=== PATIENT | female | born 1935 | race Caucasian/White ===

== ENCOUNTER 2018-10-28 17:33 | Inpatient (IN) ==
--- NOTE | 2018-10-28 17:53 | PROVIDER DOCUMENTATION ---
HPI-General Adult - General Chief Complaint: Return/Recheck Stated Complaint: RECHECK Time Seen by Provider: 10/28/18 17:52 Source: patient Allergies/Adverse Reactions: Patient Allergies Allergy/AdvReac Type Severity Reaction Status Date / Time No Known Allergies Allergy Verified 10/28/18 17:59 Home Medications: Home Medication List Medication Instructions Recorded Confirmed Last Taken Type Metformin [Glucophage] 500 mg PO DAILY 02/03/12 10/28/18 07/12/18 History Aspirin 81 mg PO DAILY 11/21/12 10/28/18 05/28/17 History Carvedilol [Coreg] 6.25 mg PO DAILY 08/03/13 10/28/18 07/12/18 History Losartan/Hctz [Hyzaar 50/12.5 mg] 1 each PO DAILY 08/03/13 10/28/18 07/12/18 History Escitalopram Oxalate [Lexapro] 5 mg PO DAILY 05/09/15 10/28/18 07/12/18 History Clindamycin [Cleocin] 300 mg PO Q6HR 7 Days #56 cap 10/27/18 10/28/18 Unknown Rx - History of Present Illness -Gen Adult Nature of Presenting Problems: Pt. is 82 yof that presents with c/o redness and swelling to the left foot. Pt. reports she was seen yesterday for the same but it is getting worse. Pt. thinks she was bitten by an insect. She denies any other complaints. Location of Pain/Injury: reports: feet (Left). denies: none, head, face, mouth, neck, chest, upper extremity, hand(s), abdomen, back, pelvis, genitalia, lower extremity, upper body, lower body, generalized, other Pain Radiation: reports: no radiation. denies: arm(s), back, buttocks, chest, epigastric, feet, groin, jaw, flank (L), legs (lower), LLQ, LUQ, neck, periumbilical, flank (R), RLQ, RUQ, shoulder(s), scapula, scrotal, sternal notch, suprapubic, legs (upper), urethral, vaginal, other Quality of Pain: reports: aching. denies: burning, cramping, pressure, stabbing, throbbing, tightness Severity: reports: mild. denies: moderate, severe Onset/Duration: reports: gradual, 2 days ago Timing: reports: still present. denies: improving, intermittent, constant, getting worse Context/Activities at Onset: reports: none. denies: light activity, moderate activity, vigorous activity, recent emotional stress, recent physical stress, recent trauma history, possible bad food, cold exposure, eating, out of country travel, rest, sleep, sexual activity, other Modifying Factors: improves with: nothing Associated Symptoms: reports: other (Left foot redness and swelling.). denies: denies symptoms, anxiety, arm pain, back/neck pain, chest pain, constipation, cough, diaphoresis, diarrhea, dizziness, EENT symptoms, fatigue, fever/chills, genitourinary problems, headaches, heartburn, joint pain, loss of appetite, malaise, muscle aches, sinus congestion/drainage, nausea, rash, seizure, shortness of breath, sensory/motor loss, pain with inspiration, swelling/mass in abdomen, syncope, vomiting, weakness, trouble walking Similar Symptoms Previously?: Yes Recently seen or treated by another doctor?: Yes Review of Systems - Adult - REVIEW OF SYSTEMS - ADULT Constitutional: reports: no symptoms reported Eyes: reports: no symptoms reported Ears, Nose, Mouth & Throat: reports: no symptoms reported Cardiovascular: reports: no symptoms reported Respiratory: reports: no symptoms reported Gastrointestinal: reports: no symptoms reported Genitourinary: reports: no symptoms reported Musculoskeletal: reports: no symptoms reported Integumentary: reports: see HPI, skin thickening. denies: hair loss, mole changes, nail changes, skin sores/ulcer Neurological: reports: no symptoms reported Psychiatric: reports: no symptoms reported Past History - Adult - PAST MEDICAL HISTORY-ADULT Review of Records: reports: Old Records Reviewed, Nursing Assessment Review, Medications Reviewed, Social history reviewed & non-contributory. Major Childhood Illnesses: reports: denies history Cardiovascular: reports: CAD, HTN, hyperlipidemia, [place] Respiratory: reports: COPD Gastrointestinal: reports: denies history Obstetrical/Gynecological: reports: denies history Genitourinary: reports: denies history Musculoskeletal: reports: denies history Neurological: reports: denies history Psychiatric: reports: anxiety Endocrine/Immune: reports: Diabetes Other Conditions: reports: denies history - PRIOR SURGERIES/PROCEDURES Surgical/Procedure History: reports: cardiac stent, hernia repair - PRIOR HOSPITALIZATIONS Prior Hospitalizations: reports: for similar symptoms - IMMUNIZATION STATUS Childhood Immunizations: See Nurse Assessment Flu Vaccine: See Nurse Assessment - FAMILY HISTORY Family History: reviewed, not pertinent - SOCIAL HISTORY Smoking: denies Physical Exam-General - PHYSICAL EXAM-ADULT Initial Vital Signs Reviewed: Yes - CONSTITUTIONAL General Appearance: alert, no apparent distress, thin. negative: anxious, slow to respond, obtunded, combative - EYES Eyes: PERRL/EOMI, pink conjunctivae. negative: conjuctival exudate, scleral icterus, subconjunctival hemorrhage - HEAD, EARS, NOSE, MOUTH & THROAT HENMT: normocephalic/atraumatic, moist mucous membranes. negative: angioedema, frontal tenderness, maxillary tenderness - NECK Neck: non-tender, full range of motion, supple, normal inspection - RESPIRATORY Respiratory: lungs clear, normal breath sounds. negative: crackles, rales, rhonchi, stridor, wheezing - CARDIOVASCULAR Cardiovascular: normal peripheral pulses, regular rate, rhythm, no edema - GASTROINTESTINAL (ABDOMEN) Abdominal Exam: normal bowel sounds, non tender, soft - LYMPHATIC Lymphatic: no adenopathy. negative: axilla node tender, cervical node tenderness - MUSCULOSKELETAL Back Exam: normal inspection, no CVA tenderness, no vertebral tenderness Extremity: normal range of motion, non-tender, normal gait, normal inspection. negative: erythema, inflammation, swelling, tenderness Peripheral Pulses: radial (R): 2+, radial (L): 2+ - SKIN Integumentary: erythema (Left foot), swelling (Left foot), tenderness (Left foot), warm (Left foot). negative: blanching, cyanosis, diaphoresis, mottled - NEUROLOGIC Neurologic: grossly normal, no motor/sensory deficits - PSYCHIATRIC Psych/Mental Status: normal mood/affect, normal thought content, normal thought process, oriented x 3. negative: anxious, paranoid, tearful Progress - PLAN OF CARE/RESULTS Progress/Plan/Lab Results: Vital Signs - 8 hr 10/28/18 17:37 Temperature 97.7 F Pulse Rate 108 H Respiratory Rate 18 Blood Pressure 120/50 O2 Sat by Pulse Oximetry 97 Laboratory Tests 10/28/18 10/28/18 18:05 18:12 WBC 6.89 RBC 3.47 L Hgb 10.2 L Hct 31.6 L MCV 91.1 MCH 29.4 MCHC 32.3 L RDW Std Deviation 13.7 Plt Count 235 MPV 10.5 H Immature Gran % (Auto) 0.0 Neut % (Auto) 64.3 Lymph % (Auto) 23.5 [place] % (Auto) 10.9 H Eos % (Auto) 0.9 Baso % (Auto) 0.4 Immature Gran # (Auto) 0.00 Neut # (Auto) 4.43 Lymph # (Auto) 1.62 [place] # (Auto) 0.75 H Eos # (Auto) 0.06 Baso # (Auto) 0.03 Plasma Lactate 2.4 H Discussed results and plan of care with patient. Patient agrees with plan and verbalizes understanding. Result Diagrams: 10/28/18 18:05 - XRAY 1 XRAY: Left XRAY Study: Foot ([facility] [address] [address], [address], [place] [address] Department of Imaging Patient: SHERI HAYWARD Date: 10/28/18#: [id number] : 8ADM Status: PRE ERAcct#: [id number] Age/Sex: 82/FRoom/Bed: Loc: ED Ordering Physician: Fawn Bennett Family Physician: June Desai Reason for Procedure: swelling and pain Signed FOOT COMPLETE LEFT - 10/28/2018 INDICATION: swelling and pain TECHNIQUE: Three views COMPARISON: None FINDINGS: There is no fracture or dislocation. There is nonspecific soft tissue swelling at the dorsum of the foot. There are mild degenerative changes of the mid tarsal joints and small degenerative heel spurs. There is peripheral vascular disease with vascular calcification about the ankle. IMPRESSION: Nonspecific findings. Electronically signed by Tommy Barry 10/28/2018 6:42 PM 10/28/18 [id number] Interpreting Physician: Tommy Barry MD Dictated Date/Time: 10/28/18 1841 cc: Fawn Bennett; Juen Desai) XRAY Interpretation: See note - CONSULTS/PCP/HOSPITALIST Notification #1 *Consult/PCP/Hospitalist*: Dr. Em Time Discussed: 20:18 Reason/Comments: Admission Consult Disposition: Will see in ED, Admit Departure - Departure Date of Disposition Decision: 10/28/18 Time of Disposition Decision: 20:19 DIAGNOSIS: Cellulitis Qualifiers: Site of cellulitis: extremity Site of cellulitis of extremity: lower extremity Laterality: left Qualified Code(s): L03.116 - Cellulitis of left lower limb Disposition: ADMITTED INPATIENT 09 Certified Medical Emergency: Emergent Condition: Stable Referrals and Follow-Ups: June Desai CRNP [Primary Care Provider] - - Critical Care Note This patient required my direct & personal management of CC.: No Attestation - Physician/ GLEN Attestation Patient care was provided by Advanced Practice Provider:: Yes Advanced Practice Provider:: Fawn Bennett Advanced Practice Provider documentation review:: The Mid-level provider documentation, treatment plan and medical decision making was reviewed by the physician who agrees with all treatment and medical decision making by the P. The physician spent face to face time with patient:: No Advanced Practice Provider documentation review:: Supervising physician onsite and consulted in the evaluation and care of this patient. The physician did not have a face to face encounter with the patient.
[2018-10-28 18:31] LABS: BASO# 0.03 X1000 (0.0-0.2); BASO% 0.4 % (0.0-0.8); EOS# 0.06 X1000 (0.0-0.7); EOS% 0.9 % (0.0-10.0); HEMATOCRIT 31.6 % (37.0-47.0); HEMOGLOBIN 10.2 g/dL (12.0-16.0); LYMPH# 1.62 X1000 (1.2-3.4); LYMPH% 23.5 % (20.5-51.1); MCH 29.4 PG (27-31); MCHC 32.3 g/dL (33-37); MCV 91.1 FL (81-99); MONO# 0.75 X1000 (0.11-0.59); MONO% 10.9 % (1.7-9.3); MPV 10.5 FL (7.4-10.4); NEUT# 4.43 X1000 (1.4-6.5); NEUT% 64.3 % (42.2-75.2); PLT 235 X1000 (130-400); RBC 3.47 XMIL (4.2-5.4); RDW 13.7 % (11.5-14.5); WBC 6.89 X1000 (4.8-10.8)
--- NOTE | 2018-10-28 18:45 | Diag Imaging Result Doc PS360 ---
FOOT COMPLETE LEFT - 10/28/2018 INDICATION: swelling and pain TECHNIQUE: Three views COMPARISON: None FINDINGS: There is no fracture or dislocation. There is nonspecific soft tissue swelling at the dorsum of the foot. There are mild degenerative changes of the mid tarsal joints and small degenerative heel spurs. There is peripheral vascular disease with vascular calcification about the ankle. IMPRESSION: Nonspecific findings. Electronically signed by Tommy Barry 10/28/2018 6:42 PM
[2018-10-28] MEDS ORDERED: ROCEPHIN 1 GM in NS 50 ML IV ONE (20:19)
[2018-10-28] MEDS ORDERED: VANCOMYCIN 1 GM/NS 1 GM/250 ML IVPB IV ONE (20:20)
--- NOTE | 2018-10-28 20:41 | Diag Imaging Result Doc PS360 ---
CHEST-1 VIEW - 10/28/2018 INDICATION: admission COMPARISON: 05/28/2017 FINDINGS: Lungs are severely hyperexpanded compatible with advanced COPD. There is cardiomegaly and pulmonary vascular congestion. Mild ill-defined infiltrate or edema in the right lower lobe. Probable rib fracture at the upper right rib cage. IMPRESSION: Nonspecific findings. Electronically signed by Tommy Barry 10/28/2018 8:38 PM
[2018-10-28 21:00] LABS: URINE SOURCE CLEAN CATCH
[2018-10-28 21:12] LABS: BILIRUBIN URINE NEGATIVE (NEGATIVE); BLOOD URINE NEGATIVE (NEGATIVE); COLOR YELLOW; GLUCOSE URINE NEGATIVE (NEGATIVE); KETONE URINE NEGATIVE (NEGATIVE); LEUKOCYTES URINE SMALL (NEGATIVE); NITRITE URINE NEGATIVE (NEGATIVE); PH URINE 5.5; PROTEIN URINE TRACE mg/dL (NEGATIVE); SP GRAVITY URINE 1.016; TURBIDITY URINE CLEAR (CLEAR); UROBILINOGEN URINE 2 mg/dL (NORMAL)
[2018-10-28 21:19] LABS: AGAP 13; ALBUMIN 3.5 g/dL (3.5-5.0); ALKALINE PHOSPHATASE 94 U/L (32-104); BUN 25 mg/dL (8-22); CALCIUM 9.1 mg/dL (8.8-10.2); CHLORIDE 99 mmol/L (98-107); COSMO 280; CREATININE 0.8 mg/dL (0.5-0.9); ESTIMATED GFR > 60; GLUCOSE 136 mg/dL (70-104); GOT 33 U/L (10-30); GPT 15 U/L (10-36); POTASSIUM 4.1 mmol/L (3.5-5.1); SODIUM 137 mmol/L (136-145); TCO2 25 mmol/L (25-35); TOTAL BILIRUBIN 0.27 mg/dL (0.20-1.00)
[2018-10-28 21:23] LABS: UR EPITHELIAL CELLS <10 /HPF (<10); URINE BACTERIA NEGATIVE /HPF; URINE RBC <10 /HPF (<10); URINE WBC <10 /HPF (<10)
[2018-10-29] MEDS ORDERED: VANCOMYCIN IV PER PHARMACY MISC SCH
[2018-10-29] MEDS ORDERED: NS 1,000 ML IV SCH
[2018-10-29] MEDS ORDERED: ROCEPHIN 1 GM in NS 50 ML IV SCH ×2
[2018-10-29 06:08] LABS: BASO# 0.01 X1000 (0.0-0.2); BASO% 0.2 % (0.0-0.8); EOS# 0.16 X1000 (0.0-0.7); EOS% 2.9 % (0.0-10.0); HEMATOCRIT 32.2 % (37.0-47.0); HEMOGLOBIN 10.4 g/dL (12.0-16.0); IMM GRAN# 0.02 X1000 (0.0-0.04); IMM GRAN% 0.4 % (0.0-0.5); LYMPH# 0.55 X1000 (1.2-3.4); LYMPH% 9.9 % (20.5-51.1); MCH 29.1 PG (27-31); MCHC 32.3 g/dL (33-37); MCV 89.9 FL (81-99); MONO# 0.36 X1000 (0.11-0.59); MONO% 6.5 % (1.7-9.3); MPV 10.4 FL (7.4-10.4); NEUT# 4.44 X1000 (1.4-6.5); NEUT% 80.1 % (42.2-75.2); PLT 231 X1000 (130-400); RBC 3.58 XMIL (4.2-5.4); RDW 13.3 % (11.5-14.5); WBC 5.54 X1000 (4.8-10.8)
[2018-10-29 06:32] LABS: AGAP 10; BUN 17 mg/dL (8-22); CALCIUM 9.2 mg/dL (8.8-10.2); CHLORIDE 103 mmol/L (98-107); COSMO 279; CREATININE 0.6 mg/dL (0.5-0.9); ESTIMATED GFR > 60; GLUCOSE 91 mg/dL (70-104); POTASSIUM 4.6 mmol/L (3.5-5.1); SODIUM 139 mmol/L (136-145); TCO2 26 mmol/L (25-35)
[2018-10-29] MEDS: HUMULIN R SUBQ SCH ×4 (06:57→23:18)
--- NOTE | 2018-10-29 07:44 | EKG Report ---
Test Performed on : 10/28/2018 8:26:33 PM Test Reason : admit Blood Pressure : / mmHG Vent. Rate : 079 BPM Atrial Rate : 079 BPM P-R Int : 148 ms QRS Dur : 070 ms QT Int : 352 ms P-R-T Axes : 114 037 063 degrees QTc Int : 403 ms Normal sinus rhythm. Normal ECG When compared with ECG of 25-AUG-2016 20:37, premature supraventricular complexes. are no longer present Unconfirmed Result
[2018-10-29] MEDS: HYZAAR 50/12.5 MG PO SCH (08:32)
[2018-10-29] MEDS: LEXAPRO PO SCH (08:32)
[2018-10-29] MEDS: ASPIRIN PO SCH (08:32)
[2018-10-29] MEDS: COREG PO SCH (08:32)
[2018-10-29] MEDS: LOVENOX SUBQ SCH (09:02)
--- NOTE | 2018-10-29 15:46 | HISTORY AND PHYSICAL ---
PRIMARY CARE PHYSICIAN: Dr. Desai CHIEF COMPLAINT: Left ankle pain. HISTORY OF PRESENTING ILLNESS: 82 -year-old female with a history of coronary artery disease, [place], hypertension, diabetes mellitus type 2 presents to emergency department with several day history of having pain in her left ankle. She states apparently she was walking in her yard and she may have scraped against something or something may have bit her. She developed a moderate amount of pain in that left ankle region and the ankle was swollen and getting more tender. She was evaluated in the emergency department and her left ankle had a lot of edema and erythema consistent with cellulitis. Subsequently she will require admission for further management. At the time of my examination patient denied any headache, fever, chills, chest pain, shortness of breath, hemoptysis, no weight changes but complaint of left ankle pain. PAST MEDICAL HISTORY: 1. Coronary artery disease. 2. Myocardial infarction. 3. Hypertension. 4. Hyperlipidemia. 5. Diabetes mellitus type 2. PAST SURGICAL HISTORY: 1. Hernia repair. 2. Coronary stent. ALLERGIES: NO KNOWN DRUG ALLERGIES. CURRENT MEDICATIONS: 1. Aspirin 81 mg per daily. 2. Coreg 6.25 mg per daily. 3. Lexapro 5 mg per daily. 4. Hyzaar 50/12.5 mg per daily. 5. Metformin 500 mg p.o. per daily. SOCIAL HISTORY: She is a former smoker. No history of alcohol or illicit drug use. FAMILY HISTORY: Positive for coronary artery disease in father. REVIEW OF SYSTEMS: 14 point review of systems as list in the history of present illness, other systems negative. PHYSICAL EXAMINATION: GENERAL: Cooperative, friendly female. She is resting more comfortably now. VITAL SIGNS: Temperature 97.7, pulse 108, respiration 18, blood pressure 120/50. HEENT: Atraumatic, normocephalic. Extraocular movements are intact, PERRLA. NECK: No masses. CHEST: Clear to auscultation. CARDIOVASCULAR: Regular rate and rhythm. ABDOMEN: Soft, positive bowel sounds. EXTREMITIES: Left ankle moderate edema and erythema. NEURO: She is alert, awake, oriented x 3. : No bladder distention. SKIN: Warm. LABORATORY AND STUDIES: WBC 6.89, hemoglobin 10.2, hematocrit 31.6, platelets 236. Sodium 137, potassium 4.1, chloride 99, CO2 25, BUN 25, creatinine 0.8, glucose 136. ASSESSMENT: 82 -year-old female with a history of coronary artery disease, hypertension, diabetes mellitus type 2 presented to the emergency department after she possibly scraped her left ankle or inset bit her. She developed moderate erythema in her left ankle. She was brought to the emergency department where her ankle was evaluated and clinically seemed consistent with cellulitis. Subsequently she will require admission for management. IMPRESSION: 1. Left ankle cellulitis. 2. Diabetes mellitus type 2. 3. Hypertension. PLAN: 1. We will admit patient to medical floor. 2. We will start patient on IV antibiotics. 3. Monitor blood glucose and put patient on sliding scale insulin regimen. 4. We will monitor blood pressure and resume antihypertensive agent. 5. We will continue with deep venous thrombosis prophylaxis with Lovenox. 6. We will continue to follow and make further recommendations based on patient's clinical course. cc: Donny Em MD
[2018-10-30 06:27] LABS: AGAP 3; CHLORIDE 101 mmol/L (98-107); GLUCOSE 87 mg/dL (70-104); POTASSIUM 4.2 mmol/L (3.5-5.1); SODIUM 134 mmol/L (136-145); TCO2 30 mmol/L (25-35)
[2018-10-30 06:28] LABS: BUN 16 mg/dL (8-22); CALCIUM 9.1 mg/dL (8.8-10.2); COSMO 269; CREATININE 0.6 mg/dL (0.5-0.9); ESTIMATED GFR > 60
[2018-10-30] MEDS: HUMULIN R SUBQ SCH ×2 (06:30→11:34)
[2018-10-30 07:43] VITALS: BP 156/77
[2018-10-30] MEDS: HYZAAR 50/12.5 MG PO SCH (09:11)
[2018-10-30] MEDS: COREG PO SCH (09:11)
[2018-10-30] MEDS: LOVENOX SUBQ SCH (09:11)
[2018-10-30] MEDS: LEXAPRO PO SCH (09:11)
[2018-10-30] MEDS: ASPIRIN PO SCH (09:11)
[2018-10-30] MEDS ORDERED: VANCOMYCIN 650 MG in NS 150 ML IV SCH (20:00)
[2018-10-30] MEDS ORDERED: VANCOMYCIN 1 GM/NS 1 GM/250 ML IVPB IV SCH (22:00)
--- NOTE | 2018-10-31 10:39 | DISCHARGE SUMMARY ---
ADMISSION DATE: 10/28/2018 DISCHARGE DATE: 10/30/2018 DISCHARGE DISPOSITION: Home with family. DISCHARGE CONDITION: Hemodynamically stable, alert, oriented. Her left foot erythema and edema and warmth have significantly decreased. Blood cultures were negative. DISCHARGE DIAGNOSES: 1. Left foot cellulitis. 2. Bilateral feet onychomycosis. 3. Essential hypertension. OTHER DIAGNOSES: 1. History of coronary artery disease and myocardial infarction status post stent in 2008. 2. Rsa-hvujhen-yrafhifyd diabetes mellitus. 3. Essential hypertension. 4. Anxiety. 5. Hyperlipidemia. DISCHARGE MEDICATIONS: Aspirin 81 mg daily. Carvedilol 6.25 mg daily. Metformin 500 mg daily. Losartan/hydrochlorothiazide 50 mg/12.5 mg 1 tablet daily. Escitalopram 5 mg daily. Cefuroxime 250 mg every 6 hours, #20 tablets have been prescribed. DISCHARGE PHYSICAL EXAMINATION: Vitals at the time of discharge: Temperature 98.1 degrees, pulse 77, respiratory rate 20, blood pressure 150/77, saturating 97% on room air. General: Not in any acute distress. Appears cachectic. No pallor, cyanosis, clubbing, or icterus. Oral cavity is moist. Air entry bilaterally equal. No wheeze, rhonchi, crackles. S1, S2 normal. No murmur, rub, gallop. Abdomen is soft, nontender. No abnormality on the right lower extremity as such. Left foot has mild edema affecting ankle. There is no visible erythema. She does have bilateral onychomycosis. She is alert. She is oriented to person and place, but does appear to have mild cognitive impairment. SIGNIFICANT LABORATORIES DURING HOSPITALIZATION AND DISCHARGE: WBC 5000, hemoglobin 10.4, platelet 231,000. Sodium 134, potassium 4.2, BUN 16, creatinine 0.6, blood glucose 105. SIGNIFICANT MICROBIOLOGICAL DATA DURING HOSPITAL ADMISSION: Blood culture did not have any growth. Urine culture did not have any growth significant. SIGNIFICANT IMAGING DURING HOSPITAL ADMISSION: Foot x-ray had nonspecific soft tissue swelling in the dorsum of the foot with mild degenerative changes in the midtarsal joints and small degenerative heel spurs and peripheral vascular disease with vascular calcification about ankle. Chest x-ray had severely hyperexpanded lungs compatible with advanced COPD, cardiomegaly, pulmonary vascular congestion. HOSPITAL COURSE SUMMARY: Ms. Romero is an 82--year-old female with history of coronary artery disease and noninsulin dependent diabetes mellitus type 2, who came in with several-day history of having left ankle pain. Apparently, she was walking in the ER, and then she may have scraped again something or something may have bitten her. After that, she developed a moderate amount of pain in the left ankle region and the ankle became swollen and was getting more tender, so she was brought to the emergency room by the family. She was found to have left foot cellulitis and so admitted for IV antibiotics. She was treated initially with intravenous fluids, intravenous antibiotics for about 48 hours, following which her swelling had decreased and her erythema had disappeared. Her blood cultures had no growth to date, and x-ray of the foot did not detect any osteomyelitis. At the time of discharge, she was hemodynamically stable, and she was discharged on oral cefuroxime. She was also found to have bilateral onychomycosis, and she was advised to see her regular doctor and discuss about the treatment options. Plan of care was discussed with the patient and her daughter at bedside. All of their questions have been answered. COORDINATION TIME: Less than 30 minutes were spent in discharging this patient. cc: Dariusz Dillon MD
--- NOTE | 2018-11-01 08:43 | PROGRESS NOTE ---
DATE: 10/29/2018 INTERVAL HISTORY: Ms. Garcia was admitted overnight for left foot cellulitis. Was started on intravenous antibiotics and blood cultures were sent. Her lactic acidosis overnight have resolved. Though the urine culture is in the lab, the patient is asymptomatic. She quit smoking about 20 years ago. SUBJECTIVE: She is feeling fine and wants to go home. I discussed about clinical exam finding, need for intravenous antibiotics and awaiting fine blood culture results. Currently vitals temperature 98.1, pulse 79, respiratory rate of 16, blood pressure 140/58, saturation 98% on room air. PHYSICAL EXAMINATION: General: Appears cachectic, not in any acute distress. Oral cavity is dry. Air entry: Breath sounds are difficult to appreciate but no appreciable wheeze, rhonchi or crackles. S1, S2 normal. No murmur or gallop. Abdomen: Scaphoid, nontender. No lower extremity edema on the right side. Left foot examination reveals erythema, warmth and tenderness of left foot. No popliteal or left inguinal lymphadenopathy. Dorsalis pedis and posterior tibial pulses are intact. She does have edema affecting left foot. She also has onychomycosis affecting bilateral feet nails. LABS: Normocytic anemia. Normal platelet count. Normal electrolytes. Improvement in BUN. Resolution of lactic acidosis. Blood culture is in laboratory. Urine culture no growth to date. IMAGING: Foot x-ray did not have any acute abnormalities. ASSESSMENT AND PLAN: 1. Left foot cellulitis with lactic acidosis. Continue intravenous vancomycin and intravenous ceftriaxone. Follow-up final blood culture results. Based on that, change antibiotic to Clindamycin. 2. Continue heparin for deep venous thrombosis prophylaxis. 3. Non insulin dependent diabetes mellitus, type 2. Continue sliding scale insulin. 4. Essential hypertension. Continue home medication of carvedilol, losartan HCTZ and aspirin. 5. Others. Continue home escitalopram for anxiety. DISPOSITION: I will await final blood culture results. Based on that, I am anticipating discharge in the next 24 to 48 hours. Plan of care discussed with patient and her family at bedside. All of their questions have been answered. cc: Dariusz Dillon MD MTDD
== END 2018-10-30 12:30 | disposition home or self-care (01) | DRG 603 ==
LOC: ED 17:33 → 4N 22:43 → SUATTDRO 22:43
PROVIDERS: ATTEND Internal Medicine
CPT/HCPCS: 71010; 71045; 73630; 80048; 80053; 81001; 82948; 83605; 85025; 87040; 87088; 93005; 96365; 96367; 96372; 99282; 99285; A9270; J0696; J1650; J3370; J7030; S0077; XXXXX

== ENCOUNTER 2018-12-04 15:26 | Inpatient (IN) ==
[2018-12-04] MEDS ORDERED: MORPHINE IV ONE (15:36)
[2018-12-04] MEDS ORDERED: ZOFRAN IV ONE (15:37)
[2018-12-04 15:58] LABS: HEMATOCRIT 33.2 % (37.0-47.0); MCH 29.5 PG (27-31); RBC 3.73 XMIL (4.2-5.4); WBC 5.31 X1000 (4.8-10.8)
[2018-12-04 15:59] LABS: BASO# 0.03 X1000 (0.0-0.2); BASO% 0.6 % (0.0-0.8); EOS# 0.04 X1000 (0.0-0.7); EOS% 0.8 % (0.0-10.0); LYMPH# 1.97 X1000 (1.2-3.4); LYMPH% 37.1 % (20.5-51.1); MCHC 33.1 g/dL (33-37); MONO# 0.56 X1000 (0.11-0.59); MONO% 10.5 % (1.7-9.3); MPV 10.3 FL (7.4-10.4); NEUT# 2.71 X1000 (1.4-6.5); PLT 288 X1000 (130-400); RDW 12.7 % (11.5-14.5)
[2018-12-04 16:16] LABS: AGAP 11; ALB/GLOB RATIO 1.2; ALBUMIN 3.6 g/dL (3.5-5.0); ALKALINE PHOSPHATASE 72 U/L (32-104); BUN 22 mg/dL (8-22); CALCIUM 9.5 mg/dL (8.8-10.2); CHLORIDE 95 mmol/L (98-107); COSMO 276; CREATININE 0.8 mg/dL (0.5-0.9); ESTIMATED GFR > 60; GLUCOSE 173 mg/dL (70-104); GOT 20 U/L (10-30); GPT 9 U/L (10-36); POTASSIUM 4.4 mmol/L (3.5-5.1); SODIUM 134 mmol/L (136-145); TCO2 28 mmol/L (25-35); TOTAL BILIRUBIN 0.28 mg/dL (0.20-1.00); TOTAL PROTEIN 6.5 g/dL (6.3-8.3)
--- NOTE | 2018-12-04 16:42 | Diag Imaging Result Doc PS360 ---
KNEE 1-2 VIEWS-RIGHT - 12/04/2018 INDICATION: knee pain TECHNIQUE: Two views COMPARISON: None FINDINGS: Bones are intact and normally aligned. There is mild osteoarthritis mainly of the medial joint compartment. No joint effusion. There is moderately advanced peripheral vascular disease of the femoral and popliteal arteries. IMPRESSION: Chronic changes. Electronically signed by Tommy Barry 12/04/2018 4:40 PM
--- NOTE | 2018-12-04 16:44 | Diag Imaging Result Doc PS360 ---
CHEST-PORTABLE - 12/04/2018 INDICATION: pre op test COMPARISON: 10/28/2018 FINDINGS: Lungs are hyperexpanded compatible with COPD. Stable biapical pleural scarring. No infiltrates or edema. Heart size is borderline enlarged. IMPRESSION: COPD with pulmonary scarring. Borderline cardiomegaly. Electronically signed by Tommy Barry 12/04/2018 4:42 PM
--- NOTE | 2018-12-04 16:44 | Diag Imaging Result Doc PS360 ---
XRAY HIP UNILATERAL RT - 12/04/2018 INDICATION: femur fracture TECHNIQUE: Two views COMPARISON: None FINDINGS: There is comminuted, badly displaced intertrochanteric right proximal femur fracture. No dislocation. There is moderate hip osteoarthritis. IMPRESSION: Severe intertrochanteric right hip fracture. Electronically signed by Tommy Barry 12/04/2018 4:41 PM
--- NOTE | 2018-12-04 17:53 | PROVIDER DOCUMENTATION ---
This chart was entered by Argelia Gomez Scribe, acting as scribe for Siobhan Smith MD. HPI-Musculoskeletal Pain/Inj - GENERAL Chief Complaint: Hip Injury Stated Complaint: FALL Time Seen by Provider: 12/04/18 15:33 Source: patient - HX OF PRESENT ILLNESS-MUSKULOSKELTAL Nature of Presenting Problem: Patient is a 83 year old female who presents to the ED via EMS with right hip and right thigh pain. EMS states patient tripped and fell landing on right hip. Patient denies head injury. Quality of Pain: reports: aching Severity in ED: mild Onset/Duration: just prior to arrival Timing: still present Any recent injury?: Yes (fall) Locality of Occurance: Home Similar Symptoms Previously?: No Recently seen or treated by another doctor?: No - FALL INJURY Location of Pain/Injury: reports: lower extremity (right hip and right thigh) Pain Radiation: reports: no radiation Reason for Fall: reports: tripped Symptoms prior to fall:: reports: none Loss of Consciousness: no loss of consciousness Injury Associated Symptoms: reports: denies symptoms - HIP/PELVIS PAIN/INJURY Hip Pain Location: reports: hip (R) Pain Radiation: reports: no radiation Context / Method of Injury: reports: fall Associated Symptoms: reports: denies symptoms - LOWER EXTREMITY PAIN/INJURY Lower Extremities Pain: hip: right, thigh: right Context / Method of Injury: reports: fell Associated Symptoms: reports: denies symptoms Review of Systems - Adult - REVIEW OF SYSTEMS - ADULT Constitutional: reports: no symptoms reported. denies: chills, fever, fatique Eyes: reports: no symptoms reported Ears, Nose, Mouth & Throat: reports: no symptoms reported Cardiovascular: reports: no symptoms reported Respiratory: reports: no symptoms reported Gastrointestinal: reports: no symptoms reported Genitourinary: reports: no symptoms reported Musculoskeletal: reports: see HPI, other (right hip and right thigh pain). denies: back pain, neck pain Integumentary: reports: no symptoms reported Neurological: reports: no symptoms reported. denies: dizziness/vertigo, headache/migraines, syncope Psychiatric: reports: no symptoms reported Endocrine: reports: no symptoms reported Hematologic/Lymphatic: reports: no symptoms reported Allergic/Immunologic: reports: no symptoms reported All Other Systems: Reviewed and Negative Past History - Adult - PAST MEDICAL HISTORY-ADULT Review of Records: reports: Old Records Reviewed, Nursing Assessment Review, Medications Reviewed, Social history reviewed & non-contributory. Major Childhood Illnesses: reports: denies history Cardiovascular: reports: CAD, HTN, hyperlipidemia, MD Respiratory: reports: COPD Gastrointestinal: reports: denies history Obstetrical/Gynecological: reports: denies history Genitourinary: reports: denies history Musculoskeletal: reports: denies history Neurological: reports: denies history Psychiatric: reports: anxiety Endocrine/Immune: reports: Diabetes Other Conditions: reports: denies history - PRIOR SURGERIES/PROCEDURES Surgical/Procedure History: reports: cardiac stent, hernia repair - PRIOR HOSPITALIZATIONS Prior Hospitalizations: reports: for similar symptoms - IMMUNIZATION STATUS Childhood Immunizations: See Nurse Assessment Flu Vaccine: See Nurse Assessment - FAMILY HISTORY Family History: reviewed, not pertinent - SOCIAL HISTORY Smoking: cigarettes (former) Substance Use: denies Living Situation: family Physical Exam-Injury Related - Physical Exam-Injury Related Initial Vital Signs Reviewed: Yes General Appearance: alert, mild distress, thin. negative: lethargic Head, Ears, Nose, Mouth & Throat: normocephalic/atraumatic, moist mucous memb ranes. negative: angioedema Neck: non-tender, normal inspection. negative: limited range of motion Respiratory: chest non-tender, lungs clear, normal breath sounds, other (barrel chest). negative: crackles, wheezing Cardiovascular: normal peripheral pulses, regular rate, rhythm. negative: tachycardia Peripheral Pulses: dorsalis-pedis (R): 2+, dorsalis-pedis (L): 2+ Abdominal Exam: normal bowel sounds, non tender, soft. negative: guarding Back Exam: kyphosis, scoliosis. negative: vertebral tenderness Extremity: deformity (right hip), tenderness (right hip and right thigh), other (limited ROM to right hip due to pain). negative: swelling Integumentary: normal color, warm/dry. negative: ecchymosis, swelling, laceration Neurologic: grossly normal. negative: aphasia, facial droop Psych/Mental Status: normal mood/affect, oriented x 3. negative: anxious Progress - PLAN OF CARE/RESULTS Progress/Plan/Lab Results: Vital Signs - 8 hr 12/04/18 15:37 12/04/18 16:18 12/04/18 16:30 Temperature 97.8 F Pulse Rate Respiratory Rate Blood Pressure 128/61 O2 Sat by Pulse Oximetry 93 L 96 12/04/18 16:34 12/04/18 17:01 12/04/18 17:20 Temperature Pulse Rate 83 79 79 Respiratory Rate 21 28 H 18 Blood Pressure 125/54 113/62 O2 Sat by Pulse Oximetry 95 90 L 98 12/04/18 17:31 Temperature Pulse Rate 75 Respiratory Rate 19 Blood Pressure 117/56 O2 Sat by Pulse Oximetry 100 Laboratory Results - last 24 hr 12/04/18 12/04/18 15:40 15:40 WBC 5.31 RBC 3.73 L Hgb 11.0 L Hct 33.2 L MCV 89.0 MCH 29.5 MCHC 33.1 RDW Std Deviation 12.7 Plt Count 288 MPV 10.3 Immature Gran % (Auto) 0.0 Neut % (Auto) 51.0 Lymph % (Auto) 37.1 Collier % (Auto) 10.5 H Eos % (Auto) 0.8 Baso % (Auto) 0.6 Immature Gran # (Auto) 0.00 Neut # (Auto) 2.71 Lymph # (Auto) 1.97 Collier # (Auto) 0.56 Eos # (Auto) 0.04 Baso # (Auto) 0.03 Sodium 134 L Potassium 4.4 Chloride 95 L Carbon Dioxide 28 Anion Gap 11 BUN 22 Creatinine 0.8 Estimated GFR/1.73 m2 > 60 BUN/Creatinine Ratio 28 Glucose 173 H Calculated Osmolality 276 Calcium 9.5 Total Bilirubin 0.28 AST 20 ALT 9 L Alkaline Phosphatase 72 Total Protein 6.5 Albumin 3.6 Globulin 2.9 Albumin/Globulin Ratio 1.2 Orders Category Date Time Status Nursing- MD Consult Request ROUTINE Care 12/04/18 16:50 Active Saline Loc NOW Care 12/04/18 15:34 Active Physician/Provider Consults Routine Cons 12/04/18 16:49 Ordered CHEST-PORTABLE [RAD] Stat Exams 12/04/18 15:34 Completed KNEE 1-2 VIEWS-RIGHT [RAD] Stat Exams 12/04/18 16:01 Completed XRAY HIP UNILATERAL RT [RAD] Stat Exams 12/04/18 15:34 Completed CBC WITH DIFF [HEME] Stat Lab 12/04/18 15:40 Completed COMPREHENSIVE METABOLIC PANEL [CHEM] Stat Lab 12/04/18 15:40 Completed Morphine Med 12/04/18 15:36 Discontinued 4 mg IV NOW ONE Ondansetron [Zofran] Med 12/04/18 15:37 Discontinued 4 mg IV NOW ONE EKG [EKG] Stat Ther 12/04/18 15:35 Ordered Transfer/Admit Order [TRANSFER] Routine Transfer 12/04/18 16:25 Ordered Result Diagrams: 12/04/18 15:40 12/04/18 15:40 - EKG 1 Time of EKG reading by physician:: 16:44 EKG Read and Signed by:: Siobhan Smith EKG Interpretation (*Must complete 3 of following elements*): Abnormal (rhythm - accelerated junctional rythm with occasional premature ventricular complexes) Rate: 85 Dimmitt: normal Comments: cannot rule out anterior infarct, age undetermined - XRAY 1 XRAY Study: Chest Impression: See EMR Report ( CHEST-PORTABLE - 12/04/2018 INDICATION: pre op test COMPARISON: 10/28/2018 FINDINGS: Lungs are hyperexpanded compatible with COPD. Stable biapical pleural scarring. No infiltrates or edema. Heart size is borderline enlarged. IMPRESSION: COPD with pulmonary scarring. Borderline cardiomegaly. Electronically signed by Tommy Barry 12/04/2018 4:42 PM 12/04/18 1642 Interpreting Physician: Tommy Barry MD Dictated Date/Time: 12/04/18 164 cc: Siobhan Smith MD; Tommy Wood Jr, MD) 2 XRAY: Right XRAY Study: Hip Impression: See EMR Report (XRAY HIP UNILATERAL RT - 12/04/2018 INDICATION: femur fracture TECHNIQUE: Two views COMPARISON: None FINDINGS: There is comminuted, badly displaced intertrochanteric right proximal femur fracture. No dislocation. There is moderate hip osteoarthritis. IMPRESSION: Severe intertrochanteric right hip fracture. Electronically signed by Tommy Barry 12/04/2018 4:41 PM 12/04/18 1641 Interpreting Physician: Tommy Barry MD Dictated Date/Time: 12/04/18 164 cc: Siobhan Smith MD; Tommy Wood Jr, MD) 3 XRAY: Right XRAY Study: Knee Impression: See EMR Report (KNEE 1-2 VIEWS-RIGHT - 12/04/2018 INDICATION: knee pain TECHNIQUE: Two views COMPARISON: None FINDINGS: Bones are intact and normally aligned. There is mild osteoarthritis mainly of the medial joint c ompartment. No joint effusion. There is moderately advanced peripheral vascular disease of the femoral and popliteal arteries. IMPRESSION: Chronic changes. Electronically signed by Tommy Barry 12/04/2018 4:40 PM 12/04/18 1640 Interpreting Physician: Tommy Barry MD Dictated Date/Time: 12/04/18 7845 cc: Siobhan Smith MD; Tommy Wood Jr, MD) - CONSULTS/PCP/HOSPITALIST Notification #1 *Consult/PCP/Hospitalist*: Dr. Hollis Time Discussed: 16:19 Reason/Comments: Dr. Smith consulted with Dr. Hollis about patient. #2 Consult: JELLY Wright for Hospitalist Time Discussed: 16: Reason/Comments: Dr. Smith consulted with Adriana about patient. Consult Disposition: Will see in ED, Admit Departure - Departure Date of Disposition Decision: 12/04/18 Time of Disposition Decision: 16:23 DIAGNOSIS: Closed right hip fracture Disposition: ADMITTED INPATIENT 09 Certified Medical Emergency: Emergent Condition: Fair - Critical Care Note This patient required my direct & personal management of CC.: No Attestation - Physician/ GLEN Attestation The physician spent face to face time with patient:: Yes Advanced Practice Provider documentation review:: Supervising physician onsite and consulted in the evaluation and care of this patient. The physician did have a face to face encounter with the patient. This chart was documented by the indicated scribe, (Argelia Gomez Scribe) and accurately reflects the services I performed and decisions made by me, Siobhan Smith MD, as attested by the provider's signature.
[2018-12-04] MEDS ORDERED: TYLENOL PO PRN (18:25)
[2018-12-04] MEDS ORDERED: ZOFRAN IV PRN (18:25)
[2018-12-04] MEDS: NS 1,000 ML IV SCH (18:36)
[2018-12-04] MEDS: MORPHINE IV PRN ×2 (18:36→21:34)
[2018-12-04] MEDS ORDERED: CALMOSEPTINE OINTMENT TOP PRN (19:20)
--- NOTE | 2018-12-04 19:21 | HISTORY AND PHYSICAL ---
CHIEF COMPLAINT: Right hip pain. HISTORY OF PRESENT ILLNESS: 83-year-old female, with a past medical history of coronary artery disease, ID, hypertension, diabetes type 2, recently discharged due to left foot cellulitis and bilateral feet onychomycosis, brought to the emergency department due to right hip pain after having a fall. Apparently, she was sitting in a recliner sleeping, and then she stood up and started walking and fell. She did not lose consciousness. As per the family, she tripped. She came into the emergency department and x-ray showed a right intertrochanteric hip fracture. We will consult Orthopedic Surgery Department. She will be admitted to the medical floor. Hopefully tomorrow, the hip will be repaired. She seems to be stable. It looks like she is having some kind of dementia now, as per the family. We will try to control her pain and also probably this patient will need to go to a rehab center after the surgery. PAST MEDICAL HISTORY: 1. Coronary artery disease. 2. ID. 3. Hypertension. 4. Hyperlipidemia. 5. Diabetes. 6. Recently discharged due to left foot cellulitis. PAST SURGICAL HISTORY: 1. Hernia repair. 2. Coronary artery stent. ALLERGIES: No known drug allergies. CURRENT MEDICATIONS: She has been discharged a month ago on: 1. Aspirin 81 mg p.o. daily. 2. Carvedilol 6.25 mg p.o. daily. 3. Metformin 500 mg p.o. daily. 4. Losartan/hydrochlorothiazide 50/12.5 mg daily. 5. Escitalopram 5 mg p.o. daily. REVIEW OF SYSTEMS: She denies weight loss, nausea, vomiting, diarrhea, constipation. No weight gain or losing weight. She did not pass out coma. The rest of the 14 points of review of systems were reviewed and all of them negative except as per HPI. FAMILY HISTORY: Father with coronary artery disease. SOCIAL HISTORY: She is a former smoker. No alcohol or drugs. PHYSICAL EXAMINATION: VITAL SIGNS: Temperature 97.8 degrees, pulse 77, respiratory rate 18 on the monitor, blood pressure 128/61, oxygen saturation 100% on room air. GENERAL: Elderly patient with decreased muscle mass, probably cachectic. HEENT: Head normocephalic. No trauma. PERRLA. NECK: Supple. No JVD. No masses. Central trachea. CHEST: Clear to auscultation. No wheezing. No rales. CARDIOVASCULAR: Regular rate and rhythm. ABDOMEN: Soft, nontender, nondistended. No hepatosplenomegaly. EXTREMITIES: Right hip pain and swelling, slightly rotated laterally. No signs of infection, no bleeding. NEUROLOGIC: The patient is alert. She is oriented x2. She is able to recognize family members at the bedside. As per the family, she has been having some dementia. LABORATORY: WBC 5.3, hemoglobin 11, hematocrit 33.2, platelets 288,000. Sodium 134, potassium 4.4, chloride 95, bicarbonate 28, BUN 22, creatinine 0.8, glucose 173, calcium 9.5. ASSESSMENT AND PLAN: 1. Right intertrochanteric femur fracture. We will try to control her pain. Orthopedic Surgery has been consulted. Hopefully, tomorrow this patient will go to the operating room and this will be repaired. Case has been discussed with the family and the patient. 2. History of coronary artery disease. This patient is not complaining of any chest pain. We will continue with home medications. 3. History of myocardial infarction. Aware. It looks like she had a coronary stent before. No chest pain or shortness of breath or any complaints. 4. Type 2 diabetes. We will continue home medication. 5. Likely protein-calorie malnutrition. We will put this patient on a diet. We will monitor. 6. Hypertension. Continue home medications. 7. Further recommendations pending hospital course. cc: Alfonso Michelle MD
[2018-12-04] MEDS ORDERED: KEFZOL 1 GM/D5W 1 GM/50 ML IVPB IV ONE (19:54)
[2018-12-04] MEDS: HUMALOG SUBQ SCH (21:38)
[2018-12-04 22:15] LABS: URINE SOURCE CATH
[2018-12-04 22:20] LABS: BILIRUBIN URINE NEGATIVE (NEGATIVE); BLOOD URINE MODERATE (NEGATIVE); COLOR YELLOW; GLUCOSE URINE NEGATIVE (NEGATIVE); KETONE URINE NEGATIVE (NEGATIVE); LEUKOCYTES URINE NEGATIVE (NEGATIVE); NITRITE URINE NEGATIVE (NEGATIVE); PH URINE 5.5; PROTEIN URINE TRACE mg/dL (NEGATIVE); TURBIDITY URINE CLEAR (CLEAR); UR EPITHELIAL CELLS <10 /HPF (<10); URINE BACTERIA NEGATIVE /HPF; URINE RBC <10 /HPF (<10); URINE WBC <10 /HPF (<10); UROBILINOGEN URINE 2 mg/dL (NORMAL)
[2018-12-05 06:17] LABS: INR 0.92; PROTIME 13.1 Seconds (11.0-16.0); PTT 33.3 Seconds (22.3-41.8)
[2018-12-05 06:24] LABS: BASO# 0.01 X1000 (0.0-0.2); BASO% 0.1 % (0.0-0.8); HEMATOCRIT 27.7 % (37.0-47.0); HEMOGLOBIN 8.8 g/dL (12.0-16.0); LYMPH# 1.16 X1000 (1.2-3.4); LYMPH% 15.4 % (20.5-51.1); MCH 29.5 PG (27-31); MCHC 31.8 g/dL (33-37); MONO# 0.82 X1000 (0.11-0.59); MONO% 10.9 % (1.7-9.3); MPV 10.4 FL (7.4-10.4); NEUT# 5.54 X1000 (1.4-6.5); NEUT% 73.6 % (42.2-75.2); PLT 246 X1000 (130-400); RBC 2.98 XMIL (4.2-5.4); WBC 7.53 X1000 (4.8-10.8)
[2018-12-05 06:39] LABS: ALB/GLOB RATIO 1.2; ALBUMIN 3.5 g/dL (3.5-5.0); CALCIUM 9.2 mg/dL (8.8-10.2); MAGNESIUM 1.8 mg/dL (1.5-2.7); TOTAL BILIRUBIN 0.27 mg/dL (0.20-1.00); TOTAL PROTEIN 6.4 g/dL (6.3-8.3)
[2018-12-05] MEDS ORDERED: XYLOCAINE-MPF 2% ONE (06:44)
[2018-12-05] MEDS ORDERED: NEO-SYNEPHRINE ONE (06:44)
[2018-12-05] MEDS ORDERED: SODIUM CHLORIDE 0.9% 20 ML ONE (06:44)
[2018-12-05] MEDS ORDERED: DIPRIVAN 1% ONE (06:53)
[2018-12-05] MEDS ORDERED: ROBINUL ONE (06:54)
[2018-12-05] MEDS ORDERED: FENTANYL ONE (06:54)
[2018-12-05] MEDS ORDERED: KEFZOL 1 GM/D5W 1 GM/50 ML IVPB ONE (07:00)
[2018-12-05] MEDS: HUMALOG SUBQ SCH ×4 (07:22→21:57)
[2018-12-05] MEDS: GLUCOPHAGE PO SCH ×2 (07:37→18:32)
[2018-12-05] MEDS ORDERED: ZOFRAN ONE (07:39)
[2018-12-05] MEDS ORDERED: MILK OF MAGNESIA PO PRN (08:38)
[2018-12-05] MEDS ORDERED: ZOFRAN IV PRN (08:38)
[2018-12-05] MEDS: DILAUDID ONE ×2 (08:54→09:09)
[2018-12-05] MEDS ORDERED: HYZAAR 50/12.5 MG PO SCH (09:00)
[2018-12-05] MEDS: COREG PO SCH (09:00)
[2018-12-05] MEDS: ZOCOR PO SCH (09:00)
[2018-12-05] MEDS: TYLENOL PO SCH ×3 (09:21→18:21)
[2018-12-05] MEDS ORDERED: NS 0 ML ONE (09:47)
[2018-12-05] MEDS: PERIDEX MT SCH ×2 (11:03→21:56)
--- NOTE | 2018-12-05 13:35 | OPERATIVE NOTE ---
PROCEDURE DATE : 12/05/2018 PREOPERATIVE DIAGNOSIS: Right subtrochanteric femur fracture. POSTOPERATIVE DIAGNOSIS: Right subtrochanteric femur fracture. PROCEDURE: Right comminuted subtrochanteric femur fracture, intramedullary nailing with a long trochanteric fixation nail. ANESTHESIA: General. SURGEON: Dr. Hollis. MANPOWER DEVELOPMENT SPECIALIST: Catalina Rangel PA-C. COMPLICATIONS: None. BLOOD LOSS: Minimal. DESCRIPTION OF PROCEDURE: The patient was brought to the operating suite and placed in the supine position. After successful administration of general anesthesia, the patient was placed on the OSI table in the usual position for a right hip. The right hip and leg were then prepped and draped in the usual sterile fashion. A longitudinal incision was made at the proximal tip of the greater trochanter and carried sharply through the skin. A guide pin was placed at the center of the femoral canal in AP and lateral images. It was reamed with a cannulated reamer and then the canal was reamed to 13 mm to accept an 11 mm nail. The ball tip guide pin was prepared in the distal metaphysis. The length of the nail was measured at 40 mm. A 40 mm nail was then driven into place through a stab incision laterally. Using the proximal guide, the guide pin was placed into the femoral head on AP and lateral images. It was measured at 85 mm. It was reamed. The track of the helical screw was reamed and the helical screw was driven into place and then locked proximally. Traction was released and acceptable reduction was obtained. Using the Perfect Circles technique through stab incisions distally, the distal locking screws were placed. These measured 38 and 40 mm. The wounds were copiously irrigated. The fascia was closed with 0 Vicryl, skin edges approximated with 2-0 Vicryl and the skin was closed with skin shiv and a sterile dressing was applied. The patient tolerated the procedure well without complications. At the end of the procedure, all counts correct x2. The patient was transferred to the recovery room in stable condition. cc: Ajit Hollis MD
--- NOTE | 2018-12-05 13:52 | PROGRESS NOTE ---
DATE: 12/05/2018 SUBJECTIVE: This patient is status post right hip fracture repair. I 0do not have the final report, but probably she had an intramedullary nailing, PFN. But again, I will need the final report. She is doing fine. She is a little bit disoriented. Family members at the bedside. All of their questions were answered. OBJECTIVE: Vital Signs: Temperature 97.7 degrees, pulse 77, respiratory rate 18, blood pressure 115/50, and oxygen saturation 95% on 3 L of nasal cannula. HEENT: Head normocephalic. No trauma. PERRLA. Neck: Supple. No JVD. No masses. Central trachea. Chest: Clear to auscultation. No wheezing. No rales. Abdomen: Soft, nontender, and nondistended. No hepatosplenomegaly. Extremities: No edema. Pain to palpation and mobilization at the level of the right hip is covered with a dressing. No signs of bleeding or infection. Neurological: The patient is alert. She is oriented to person. She is able to recognize family members at the bedside, but she is a bit disoriented. She moves all 4 extremities spontaneously. LABORATORY: WBC 7.5, hemoglobin 8.8, hematocrit 27.7, and platelets 246,000. Sodium 138, potassium 5, chloride 101, bicarbonate 29, BUN 26, creatinine 1, glucose 132, calcium 9.2, AST 21, ALT 10, and alkaline phosphatase 67. ASSESSMENT AND PLAN: 1. Right intertrochanteric femur fracture status post repair. We will continue controlling her pain. She has been placed on anticoagulation. Orthopedic Surgery Department on board. Hopefully, this patient can be discharged to a rehab center once she is ready. 2. History of coronary artery disease. This patient has no complaint of chest pain or shortness of breath. Continue home medications. 3. History of IN aware. It looks like she had a coronary stent before. No chest pain. 4. Type 2 diabetes, stable. 5. Protein calorie malnutrition. Continue with liquid diet for now. We will advanced as tolerated. 6. Hypertension. Continue home medication. cc: Alfonso Michelle MD
[2018-12-05] MEDS: KEFZOL 1 GM/D5W 1 GM/50 ML IVPB IV SCH ×2 (15:14→21:59)
[2018-12-05] MEDS: HALDOL IV PRN (20:37)
[2018-12-05] MEDS: OXY IR PO PRN (20:38)
[2018-12-05] MEDS: COLACE PO SCH (20:39)
[2018-12-05] MEDS: NS 1,000 ML IV SCH (21:58)
[2018-12-06] MEDS: MORPHINE IV PRN ×2 (00:41→04:06)
[2018-12-06] MEDS: HALDOL IV PRN ×2 (02:54→21:30)
[2018-12-06] MEDS: OXY IR PO PRN ×2 (04:07→17:08)
[2018-12-06] MEDS: TYLENOL PO SCH (04:09)
[2018-12-06] MEDS: KEFZOL 1 GM/D5W 1 GM/50 ML IVPB IV SCH (06:43)
[2018-12-06] MEDS: LOVENOX SUBQ SCH (06:48)
[2018-12-06] MEDS: HUMALOG SUBQ SCH ×4 (06:48→21:41)
[2018-12-06 06:54] LABS: HEMATOCRIT 18.8 % (37.0-47.0)
[2018-12-06 07:06] LABS: AGAP 9; BUN 23 mg/dL (8-22); CALCIUM 8.4 mg/dL (8.8-10.2); CHLORIDE 102 mmol/L (98-107); COSMO 274; CREATININE 0.8 mg/dL (0.5-0.9); ESTIMATED GFR > 60; GLUCOSE 102 mg/dL (70-104); POTASSIUM 4.3 mmol/L (3.5-5.1); SODIUM 135 mmol/L (136-145); TCO2 24 mmol/L (25-35)
[2018-12-06] MEDS ORDERED: NS 500 ML IV ONE (07:11)
[2018-12-06] MEDS: FERROUS SULFATE PO SCH (08:20)
[2018-12-06] MEDS: COREG PO SCH (08:20)
[2018-12-06] MEDS: PERIDEX MT SCH ×2 (08:20→21:29)
[2018-12-06] MEDS: ZOCOR PO SCH (08:20)
[2018-12-06] MEDS: GLUCOPHAGE PO SCH ×2 (08:20→17:09)
--- NOTE | 2018-12-06 09:17 | ORTHOPAEDICS PROGRESS NOTE ---
DATE: 12/06/2018 SUBJECTIVE: Sneha Garcia is an 83-year-old female status post a TFN on her right hip. She has been pulling off her dressing but otherwise is doing well. OBJECTIVE: She is well-nourished female she is cooperative exam. Her wounds are clean, dry, intact. Her leg is neurovascularly intact. Her hemoglobin is 6 and her hematocrit is 18.9. ASSESSMENT: Stable right trochanteric fixation nail. She does have acute blood loss anemia. PLAN: We will get her up and walking with physical therapy today. We are going to transfuse her today 2 units of packed red blood cells. We will recheck her white count tomorrow. Dr. Burt will be available this week and if a he is needed. cc: Ajit Hollis MD
--- NOTE | 2018-12-06 11:34 | PROGRESS NOTE ---
DATE: 12/06/2018 SUBJECTIVE: This patient is resting comfortably in bed. She is not complaining of pain at this moment. She is getting 2 units of blood. She has been having some episodes of hypotension, but she is responding to the IV fluids. OBJECTIVE: Vital Signs: Temperature 98.1 degrees, pulse 87, respiratory rate 18, blood pressure 134/57, oxygen saturation 100% on 3 L of nasal cannula. HEENT: Head normocephalic. No trauma. PERRLA. Neck: Supple. No JVD. No masses. Central trachea. Chest: Clear to auscultation. No wheezing. No rales. Abdomen: Soft, nontender, nondistended. No hepatosplenomegaly. Extremities: No edema. Pain to palpation and mobilization at the level of the right hip and is covered with a dressing which is clean. No signs of infection. Neurological: This patient is alert. She is oriented to person and time. She is not oriented to place. She is able to recognize family members at the bedside. She is following commands. She has been confused on and off. She moves all 4 extremities spontaneously. LABORATORY: Hemoglobin 6, hematocrit 18.8. Sodium 135, potassium 4.3, chloride 102, bicarbonate 24, BUN 23, creatinine 0.8, glucose 102, calcium 8.4. ASSESSMENT AND PLAN: 1. Right intertrochanteric femur fracture status post repair. Will continue controlling her pain. She has been placed on anticoagulation. Orthopedic Surgery on board. Hopefully this patient can be discharged to a rehab center at the beginning of the week. 2. History of coronary artery disease. No chest pain at this moment. Continue home medication. 3. History of myocardial infarction, aware. It looks like she had a coronary stent before. 4. Acute blood loss anemia. She is getting 2 units of PRBCs at this moment. Will continue to monitor the hemoglobin and hematocrit on a daily basis. 5. Protein calorie malnutrition. Continue with diet. She is on a liquid diet at this moment and I will change it to a soft diet. She seems to be tolerating her diet really well. She is more awake. 6. Episodes of hypotension, resolved. She has been getting some IV fluid, but I held her lisinopril hydrochlorothiazide. We will monitor. 7. Type 2 diabetes, stable. 8. Hypertension, as above I am holding the lisinopril hydrochlorothiazide. cc: Alfonso Michelle MD
[2018-12-06] MEDS: COLACE PO SCH (21:29)
[2018-12-07] MEDS: OXY IR PO PRN ×2 (00:43→07:56)
[2018-12-07] MEDS: LOVENOX SUBQ SCH (05:40)
[2018-12-07 06:43] LABS: HEMATOCRIT 32.4 % (37.0-47.0); HEMOGLOBIN 10.7 g/dL (12.0-16.0)
[2018-12-07 06:54] LABS: AGAP 9; BUN 17 mg/dL (8-22); CALCIUM 8.6 mg/dL (8.8-10.2); CHLORIDE 97 mmol/L (98-107); COSMO 266; CREATININE 0.6 mg/dL (0.5-0.9); ESTIMATED GFR > 60; GLUCOSE 96 mg/dL (70-104); POTASSIUM 3.8 mmol/L (3.5-5.1); SODIUM 132 mmol/L (136-145); TCO2 26 mmol/L (25-35)
[2018-12-07] MEDS: HUMALOG SUBQ SCH ×3 (07:30→17:13)
[2018-12-07] MEDS: GLUCOPHAGE PO SCH ×2 (07:52→17:02)
[2018-12-07] MEDS: FERROUS SULFATE PO SCH (07:53)
[2018-12-07] MEDS: ZOCOR PO SCH (08:00)
[2018-12-07] MEDS: PERIDEX MT SCH ×2 (08:00→20:31)
[2018-12-07] MEDS: COREG PO SCH (08:01)
--- NOTE | 2018-12-07 09:00 | ORTHOPAEDICS PROGRESS NOTE ---
DATE: 12/07/2018 SUBJECTIVE: Ms. Garcia is lying in bed this morning. Overall pain seems controlled. OBJECTIVE: Right lower extremity exam: Incisions are clean, dry, and intact. Just a little bit of induration around the incisions. She is neurovascularly intact right lower extremity. She has her compression stocking on. ASSESSMENT: Status post right trochanteric femoral nailing for subtrochanteric femur fracture. PLAN: Ms. Garcia is weight bear as tolerated right lower extremity. She will need to get up to chair today and she needs to be out of bed to her chair for all meals. We will continue to follow. cc: Cuco Burt MD
--- NOTE | 2018-12-07 17:03 | PROGRESS NOTE ---
DATE: 12/07/2018 SUBJECTIVE: Today Miss Garcia refers to be doing fairly okay. About 5 family members were at the bedside with her at the time of the encounter. OBJECTIVE: Vital signs: Blood pressure is 124/50, pulse of 79, respirations 15, temperature 97.8 degrees. General: Miss Garcia is an elderly, 83-year-old, female. She was sitting in a chair. Does not seem to be in any distress. heent: Mucosa is pink and moist. Anicteric. Acyanotic. Neck: Supple. Chest: Clear to auscultation. Cardiovascular: Regular rate and rhythm. Abdomen: Soft. Extremities: No pedal edema. The surgical site on the right hip was affronted with clips and looks clean. No oozing. LABORATORY DATA: Hemoglobin is 10.7. Chemistry is unremarkable except for sodium of 132. MEDICATIONS: Have all been reviewed. ASSESSMENT: 1. Status post mechanical fall resulting into a right comminuted displaced subtrochanteric fracture. The patient is status post open reduction internal fixation. Today is day 2 postop. Doing pretty well. Pending rehab placement. 2. Anemia of acute blood loss. The patient is status post 2 packed red blood cells transfusion. Hemoglobin and hematocrit are stable. 3. History of coronary artery disease. Currently asymptomatic. 4. Protein calorie malnutrition. The patient is on supplements. 5. Diabetes mellitus, controlled. 6. Hypertension, stable. DISPOSITION: Pending rehab placement hopefully on Sunday. cc: Ej Pizarro MD MTDD
[2018-12-07] MEDS: HALDOL IV PRN (18:20)
[2018-12-07] MEDS: MORPHINE IV PRN (20:31)
[2018-12-07] MEDS: COLACE PO SCH (20:31)
[2018-12-08] MEDS: HUMALOG SUBQ SCH ×5 (03:19→21:36)
[2018-12-08] MEDS: HALDOL IV PRN ×3 (05:03→23:04)
[2018-12-08] MEDS: LOVENOX SUBQ SCH (05:03)
[2018-12-08] MEDS: OXY IR PO PRN ×4 (05:41→23:05)
[2018-12-08 06:43] LABS: HEMATOCRIT 31.2 % (37.0-47.0); HEMOGLOBIN 10.4 g/dL (12.0-16.0)
[2018-12-08] MEDS: GLUCOPHAGE PO SCH ×2 (10:16→16:10)
[2018-12-08] MEDS: PERIDEX MT SCH ×2 (10:16→23:08)
[2018-12-08] MEDS: FERROUS SULFATE PO SCH (10:16)
[2018-12-08] MEDS: ZOCOR PO SCH (10:17)
[2018-12-08] MEDS: COREG PO SCH (10:17)
--- NOTE | 2018-12-08 12:52 | PROGRESS NOTE ---
DATE: 12/08/2018 SUBJECTIVE: This morning, Ms. Garcia refers to be doing well. No new complaints. Daughter and a granddaughter were at the bedside at the time of the encounter. OBJECTIVE: Vital Signs: Blood pressure is 120/52, pulse of 75, respirations 16, temperature 98 degrees. General: Ms. Garcia is an 83-year-old, elderly, female. She is in bed, sleeping. No distress. HEENT: Mucosa is pink and moist. Anicteric. Acyanotic. Neck: Supple. Chest: Clear to auscultation. Cardiovascular: Regular rate and rhythm. Abdomen: Soft, nontender. Extremities: No pedal edema. HAND II TUBE BENDER: The patient is awake, alert, and oriented. Extremities: The right hip has the surgical wound affronted with clips. It looks clean. LABORATORY DATA: Hemoglobin is 10.4. ASSESSMENT: 1. Status post mechanical fall resulting in a right comminuted displaced subtrochanteric fracture. The patient is status post open reduction internal fixation. Today is day 3. The patient is doing well, and she is pending rehab placement tomorrow. 2. Anemia of acute blood loss. The patient is status post 2 packed red blood cells transfusion. Hemoglobin and hematocrit are stable. 3. History of coronary artery disease, currently asymptomatic. 4. Protein calorie malnutrition. The patient is on supplement. 5. Diabetes mellitus is controlled. 6. Hypertension, controlled. 7. Deep venous thrombosis prophylaxis with Lovenox. cc: Ej Pizarro MD
[2018-12-08] MEDS: COLACE PO SCH (23:04)
[2018-12-09] MEDS: HUMALOG SUBQ SCH ×2 (06:50→11:19)
[2018-12-09] MEDS: LOVENOX SUBQ SCH (06:59)
[2018-12-09] MEDS: COREG PO SCH (08:15)
[2018-12-09] MEDS: FERROUS SULFATE PO SCH (08:15)
[2018-12-09] MEDS: GLUCOPHAGE PO SCH (08:15)
[2018-12-09] MEDS: ZOCOR PO SCH (08:15)
[2018-12-09] MEDS: PERIDEX MT SCH (08:15)
[2018-12-09 11:24] VITALS: BP 115/59
--- NOTE | 2018-12-09 11:51 | DISCHARGE SUMMARY ---
ADMISSION DATE: 12/04/2018 DISCHARGE DATE: 12/09/2018 DISPOSITION: [facility] FOLLOW-UP: 1. Dr. Wood. 2. Dr. Hollis. CONSULTATION DURING THIS ADMISSION: Orthopedics was consulted. Patient was seen by Dr. Hollis, followed up by Dr. Burt. INVASIVE PROCEDURES DONE DURING THIS ADMISSION: Right comminuted subtrochanteric femoral fracture, intramedullary nailing with a long trochanteric fixation nail was done by Dr. Hollis on 12/05/2018. IMAGING STUDIES: 1. Chest x-ray did show COPD with pulmonary scarring. 2. A hip x-ray showed severe intertrochanteric right hip fracture. ADMISSION DIAGNOSES: 1. Right intertrochanteric femur fracture. 2. History of coronary artery disease. 3. History of myocardial infarction. 4. Diabetes mellitus. 5. Hypertension. DIAGNOSES AT THE TIME OF DISCHARGE: 1. Status post mechanical fall resulting in a right comminuted displaced subtrochanteric fracture. The patient is status post ORIF. Today is day 4. She is doing well. She will continue with physical therapy. 2. Anemia of acute blood loss. Patient was status post 2 PRBC transfusion. 3. History of coronary artery disease, currently asymptomatic. 4. Protein calorie malnutrition. 5. Diabetes mellitus type 2. 6. Hypertension. DISCHARGE MEDICATIONS: 1. Metformin 500 b.i.d. 2. Aspirin 81 mg p.o. daily. 3. Losartan with hydrochlorothiazide 1 tablet daily. 4. Carvedilol 6.25 p.o. daily. 5. Simvastatin 10 mg p.o. daily. 6. Colace 200 mg at bedtime. 7. Iron sulfate 325 p.o. daily. 8. Rivaroxaban 10 mg p.o. daily. 9. Oxycodone IR 5 mg p.o. q.6h p.r.n. PRESENTING COMPLAINT: Right hip pain. HISTORY OF PRESENTING COMPLAINT: Ms. Garcia is an 83-year-old female with history of hypertension, [place], diabetes, who was doing relatively well at home. The patient was sitting in a recliner, stood up and started walking. She slipped and fell sustaining an injury to the right hip. She was not able to get up and bear any weight. She was brought to the emergency department where x-ray did reveal a right intertrochanteric hip fracture. Patient was admitted for further medical care. HOSPITAL COURSE: Ms Garcia was admitted to the medical floor, was evaluated by Orthopedics. A decision was made for surgical intervention. The patient underwent ORIF of the right hip. She tolerated the procedure very well. Postoperatively, she was found to have hemoglobin dropping to about 6.0. She got transfused 2 PRBCs. She did pretty well afterwards, participated well with physical therapy. All her other comorbidities were co-currently managed. This morning, Ms. Garcia refers to be feeling well. Her daughter was at the bedside at the time of the encounter. She denies any complaints. Her current vitals were blood pressure 115/59, pulse of 93, respirations 18, temperature 97.9 degrees. The patient was saturating 95% on nasal cannula. Physical exam is fairly unremarkable. This suture sites are clean and well affronted. No signs of infection. Ms. Garcia is clinically stable for discharge. She will be going to rehab. All the discharge instructions have been discussed with her and the daughter who was at the bedside. Both of them expressed understanding. Time spent for discharge is 35 minutes. cc: Ej Pizarro MD
[2018-12-09] MEDS ORDERED: DULCOLAX PR ONE (14:19)
[2018-12-09] MEDS ORDERED: FLEET ENEMA PR ONE (14:20)
--- NOTE | 2018-12-09 20:37 | ORTHOPAEDICS PROGRESS NOTE ---
DATE: 12/09/2018 SUBJECTIVE: Ms. Garcia is postoperative from a right trochanteric fixation nail placement. She is doing very well and resting comfortably at bedside. OBJECTIVE: General: She is an elderly female. She is alert and oriented, cooperative with examination. She is in no acute distress. Vital signs: Stable. She is afebrile. Extremities: Her right lower extremity is grossly neurovascularly intact. Her incisions are clean, dry, and intact without sign of infection. ASSESSMENT: Stable postoperative from a right trochanteric fixation nail placement. PLAN: She is to be discharged to rehab today. She is to be weightbearing as tolerated on the right lower extremity. She is to have her shiv removed in 10 to 14 days. She is to follow up with Dr. Hollis after her stay at rehab. Dictated by RC Beltran for Ajit Hollis MD cc: RC Beltran MD
[2018-12-10] MEDS ORDERED: XARELTO PO SCH (06:00)
== END 2018-12-09 16:05 | DRG 481 ==
LOC: SUPCPDRO → ED 15:26 → SUATTDRO 17:59 → 4N 17:59
PROVIDERS: ATTEND Internal Medicine
CPT/HCPCS: 36430; 71010; 71045; 73502; 73560; 76000; 80048; 80053; 81001; 82948; 83735; 84134; 85014; 85018; 85025; 85610; 85730; 86850; 86900; 86901; 86920; 93005; 94761; 94799; 96374; 96375; 97116; 97163; 97530; 99285; A9270; J0690; J1170; J1630; J1650; J1815; J2270; J2370; J2405; J3010; J7030; J7040; P9016; XXXXX

== ENCOUNTER 2019-01-05 22:37 | Observation (INO) ==
--- NOTE | 2019-01-05 23:25 | PROVIDER DOCUMENTATION ---
HPI-General Adult - General Chief Complaint: Generalized Pain Stated Complaint: all over pain Time Seen by Provider: 01/05/19 22:46 Source: family Unable to obtain history due to:: altered Allergies/Adverse Reactions: Patient Allergies Allergy/AdvReac Type Severity Reaction Status Date / Time No Known Allergies Allergy Verified 12/04/18 16:25 Home Medications: Home Medication List Medication Instructions Recorded Confirmed Last Taken Type Metformin [Glucophage] 500 mg PO BID 02/03/12 12/04/18 07/12/18 History Aspirin 81 mg PO DAILY 11/21/12 12/04/18 05/28/17 History Carvedilol [Coreg] 6.25 mg PO DAILY 08/03/13 12/04/18 07/12/18 History Losartan/Hctz [Hyzaar 50/12.5 mg] 1 each PO DAILY 08/03/13 12/04/18 07/12/18 History Simvastatin 10 mg PO DAILY 12/04/18 12/04/18 Unknown History Docusate Sodium [Colace] 200 mg PO QHS cap 12/09/18 Unknown Rx Ferrous Sulfate 325 mg PO WBREAKFAST tab 12/09/18 Unknown Rx Oxycodone I.r. [Oxy Ir] 5 mg PO Q6H PRN PRN #20 tab 12/09/18 Unknown Rx Rivaroxaban [Xarelto] 10 mg PO DAILY@0600 tab 12/09/18 Unknown Rx - History of Present Illness -Gen Adult Nature of Presenting Problems: This is an 83yo female with PMH of COPD, DM, CAD and HTN who is brought via EMS with daughter who is concerned as the patient has not been eating as much and has been more agitated. The daughter was worried that the patient is in more pain, but is not sure of the location of the pain. The patient was being seen regularly by a hospice nurse. The patient did recieve pain medication at 6pm, but daughter is not sure which kind of medication was given. Charge nurse discussed code status with daughter and decision for DNR status was the families decision. Review of Systems - Adult - REVIEW OF SYSTEMS - ADULT ROS:: unobtainable per condition Constitutional: reports: other (unobtainable per condition) Past History - Adult - PAST MEDICAL HISTORY-ADULT Review of Records: reports: Old Records Reviewed Major Childhood Illnesses: reports: other (unable to reliably obtain given patient mental status) Cardiovascular: reports: CAD, HTN, hyperlipidemia, [place], other (obtained from family) Respiratory: reports: COPD Gastrointestinal: reports: other (unable to reliably obtain given patient mental status) Genitourinary: reports: other (unable to reliably obtain given patient mental status) Musculoskeletal: reports: other (unable to reliably obtain given patient mental status) Neurological: reports: dementia, other (obtained from family) Psychiatric: reports: anxiety, other (obtained from family) Endocrine/Immune: reports: Diabetes, other (obtained from family) - PRIOR SURGERIES/PROCEDURES Surgical/Procedure History: reports: cardiac stent, hernia repair, other (obtained from family) - PRIOR HOSPITALIZATIONS Prior Hospitalizations: reports: for similar symptoms - IMMUNIZATION STATUS Childhood Immunizations: See Nurse Assessment Flu Vaccine: See Nurse Assessment Physical Exam-General - CONSTITUTIONAL General Appearance: moderate distress, cachetic, thin - EYES Eyes: negative: scleral icterus - HEAD, EARS, NOSE, MOUTH & THROAT HENMT: moist mucous membranes, other (dried material noted on the tongue) - RESPIRATORY Respiratory: decreased breath sounds, other (shallow breathing). negative: wheezing - CARDIOVASCULAR Cardiovascular: regular rate, rhythm, no edema - SKIN Integumentary: cyanosis, mottled - NEUROLOGIC Neurologic: grossly normal - PSYCHIATRIC Psych/Mental Status: other (unable to follow commands, appears disoriented.) Progress - PLAN OF CARE/RESULTS Progress/Plan/Lab Results: Vital Signs - 8 hr 01/05/19 22:46 Temperature 97.8 F Blood Pressure 61/38 83yo female with PMH of dementia and COPD on hospice presents with daughter do to concerns of patient agitation and difficulty eating. Patient noted to be hypotensive and have some shallow breathing. Goals of care were discussed with the family and they were currently like to keep her comfortable and not pursue more measures at this time including presser support or work up for infection. - REASSESSMENT Reassessment #1 Status: unchanged (Patient was discussed and was accepted by the hospitalist team.) Departure - Departure Date of Disposition Decision: 01/06/19 Time of Disposition Decision: 00:45 DIAGNOSIS: Cachexia Hypotension Qualifiers: Hypotension type: unspecified hypotension type Qualified Code(s): I95.9 - Hypotension, unspecified Disposition: ADMITTED INPATIENT 09 Certified Medical Emergency: Emergent Condition: Serious Referrals and Follow-Ups: Tommy Wood Jr, MD [Primary Care Provider] - - Critical Care Note This patient required my direct & personal management of CC.: No Attestation - Physician/ GLEN Attestation Patient care was provided by Advanced Practice Provider:: No The physician spent face to face time with patient:: Yes (Patient was co-managed by supervising Dr. Lo.) Advanced Practice Provider documentation review:: Supervising physician onsite and consulted in the evaluation and care of this patient. The physician did have a face to face encounter with the patient.
[2019-01-05] MEDS ORDERED: LR 1,000 ML IV ONE (23:29)
[2019-01-06] MEDS ORDERED: MORPHINE IV ONE (00:48)
[2019-01-06] MEDS ORDERED: MORPHINE ONE (00:55)
--- NOTE | 2019-01-06 03:16 | HISTORY AND PHYSICAL ---
PRIMARY CARE PHYSICIAN: Dr. Wood. CHIEF COMPLAINT: Weakness, intractable pain. HISTORY OF PRESENTING ILLNESS: This is an 83-year-old elderly female with a history of COPD, diabetes mellitus type 2, coronary disease, CA and hypertension kamryn was brought to the emergency department due to family is concerned over the patient's worsening weakness, failure to thrive and worsening pain. The patient's family states that she is a DNR level 1 and they do not want any treatment; however, they do not want the patient to at their home. The patient appears ill-looking, cachectic and basically is moaning in pain. Most of the history is obtained from family members due to the patient's current condition. PAST MEDICAL HISTORY: Includes COPD, diabetes mellitus type 2, coronary artery disease, CA, hypertension. PAST SURGICAL HISTORY: Coronary stent, hernia repair. ALLERGIES: No known drug allergies. CURRENT MEDICATIONS: Aspirin 81 mg p.o. daily, Coreg 6.25 mg p.o. daily, Hyzaar 50/12.5 one p.o. daily, metformin 500 mg p.o. b.i.d., oxycodone 5 mg p.o. q.6 hours, Xarelto 10 mg p.o. daily, simvastatin 10 mg p.o. daily. SOCIAL HISTORY: She is a former smoker. No history of alcohol or illicit drug use. FAMILY HISTORY: Positive for coronary disease in father. REVIEW OF SYSTEMS: Unable to obtain. PHYSICAL EXAMINATION: GENERAL: This is a cachectic ill-appearing female. She is moaning in pain. She has some shallow breathing. VITAL SIGNS: Temperature 97.8 degrees, blood pressure is 61/38. HEENT: Atraumatic and normocephalic. PERRLA. NECK: No masses. CHEST: Rhonchi. CARDIOVASCULAR: Regular rate and rhythm. ABDOMEN: Soft. Positive bowel sounds. EXTREMITIES: No edema. NEUROLOGIC: She is awake and groaning. : No bladder distention. SKIN: Warm. LABORATORIES AND STUDIES: Are still pending. ASSESSMENT: An 83-year-old cachectic frail elderly woman who appears ill looking. She has some shallow respirations. She had presented to the emergency department due to worsening weakness and pain. She was evaluated in the ED and due to her presenting symptoms we will place her for observation for further evaluation and management. ASSESSMENT: 1. Generalized pain. 2. Weakness. 3. Failure to thrive. 4. Diabetes mellitus type 2. 5. Hypertension. 6. Chronic obstructive pulmonary disease. PLAN: 1. We will admit the patient to medical floor with telemetry. 2. Continue with supportive treatment with adequate pain control and antiemetics as needed. 3. Continue with IV fluids. 4. Monitor her blood glucose closely. 5. We will restart other home medications. 6. She is already on Xarelto and this will suffice for DVT prophylaxis. 7. She is a DNR level 1 and family requests only comfort care. 8. We will continue to follow, reassess and make further recommendation based on the patient's clinical course. cc: Donny Em MD
[2019-01-06] MEDS ORDERED: NS 1,000 ML IV ONE (03:55)
[2019-01-06] MEDS ORDERED: ZOFRAN IV PRN (03:55)
[2019-01-06] MEDS ORDERED: MORPHINE IV PRN (08:34)
[2019-01-06] MEDS ORDERED: OXY IR PO PRN (10:09)
[2019-01-06] MEDS ORDERED: ATROPINE 1 % OPHTH SOLN SL PRN (13:53)
[2019-01-06] MEDS ORDERED: ATIVAN IV PRN (13:53)
[2019-01-06] MEDS: MORPHINE IV PRN ×2 (14:17→21:18)
[2019-01-06] MEDS ORDERED: SALINE LOCK IV FLUID XX ONE (15:06)
--- NOTE | 2019-01-06 15:33 | PROGRESS NOTE ---
DATE: 01/06/2019 SUBJECTIVE: Patient has no complaints, but she is moaning a little bit, and spitting up some kind of dark bilious fluid. OBJECTIVE: Blood pressure 80/30, heart rate 104, respiratory rate 22, temperature 98.9 degrees, and 92% on room air.Cardiovascular: Regular rate and rhythm. Pulmonary: Bilateral breath sounds. Clear to auscultation. Rhonchi and rales. GI: Soft, nontender, and nondistended. Bowel sounds are positive. No laboratory data. IMPRESSION AND PLAN: Basically, this is a cachectic 83-year-old female with severe failure to thrive and COPD. Family refuses all treatment except for comfort care so I do not really clearly know diagnostically what is causing her decompensation, although it does look like she has possibly an ileus, and possibly some associated pneumonia. Her blood pressure continues to decrease. Her family feels they can't take care of her at home. She previously had home hospice, quite sure what criteria she met. However, she is actively dying I would say at this point. She is cachectic, and her blood pressure is dropping. I do not think there is going to be much more time, but we will continue supportive measures and follow up. cc: Maurilio Ventura MD
[2019-01-06 20:27] VITALS: BP 56/25
[2019-01-06] MEDS ORDERED: COLACE PO SCH (21:00)
[2019-01-07] MEDS ORDERED: XARELTO PO SCH (06:00)
[2019-01-07] MEDS ORDERED: FERROUS SULFATE PO SCH (08:00)
[2019-01-07] MEDS ORDERED: COREG PO SCH (09:00)
[2019-01-07] MEDS ORDERED: ASPIRIN PO SCH (09:00)
[2019-01-07] MEDS ORDERED: ZOCOR PO SCH (09:00)
[2019-01-07] MEDS ORDERED: HYZAAR 50/12.5 MG PO SCH (09:00)
== END 2019-01-07 04:07 | disposition expired ==
LOC: SUPCPDRO → ED 22:37 → 3N 01-06 03:50 → SUATTDRO 01-06 03:50 → INTOOBSV 01-06 03:50 → 3N 01-06 04:10
PROVIDERS: ATTEND Internal Medicine